=== PATIENT | female | born 1975 | race Caucasian/White ===

== ENCOUNTER 2017-07-16 13:35 | Emergency (ER) | payer MEDICAID, MEDICARE, OTHER ==
[~2017-07-16] VITALS: Ht 162.6 cm; Wt 52.8 kg
[~2017-07-16 13:35] MED LIST: ALBU8I INH; CLON0.5T PO; CYAN1000P IM; ECOT81TA2 PO; FERR324T4 PO; GABA300C3 PO; LORTA5 PO; MECL25 PO; MIRT30 PO; ONDAN4 PO; PROT40TA PO
[2017-07-16 13:39] VITALS: BP 132/60; PULSE 92; RESP 16; TEMP 98.9; O2SAT 98
[2017-07-16] MEDS ORDERED: SODIUM CHLOR 0.9% 1000 ML INJ 1,000 ML IV ONE (15:34)
[2017-07-16] MEDS ORDERED: VITA1000 PO (15:34)
[2017-07-16] MEDS ORDERED: FERR325T18 PO (15:34)
[2017-07-16] MEDS ORDERED: MECL12.574 PO (15:34)
[2017-07-16] MEDS ORDERED: HYDR12.57 PO (15:34)
[2017-07-16] MEDS ORDERED: PROT40TA PO (15:34)
[2017-07-16] MEDS ORDERED: ASPI81CH7 CHEW (15:34)
[2017-07-16] MEDS ORDERED: ZOFR4TAB PO (15:34)
[2017-07-16] MEDS ORDERED: ALBUAER3 INH (15:35)
[2017-07-16] MEDS ORDERED: CLON0.5T PO ×2 (15:35→15:48)
[2017-07-16] MEDS ORDERED: MECLIZINE HCL 25 MG TAB PO ONE (15:45)
[2017-07-16] MEDS ORDERED: metroNIDAZOLE 500 MG TAB PO ONE (15:45)
[2017-07-16] MEDS ORDERED: ONDANSETRON HCL 4 MG/2 ML VIAL IVP ONE (15:45)
[2017-07-16] MEDS ORDERED: SODIUM CHLORIDE 0.9% FLUSH 10 ML FLUSH IVF PRN (15:45)
[2017-07-16] MEDS ORDERED: CLINDAMYCIN 150 MG CAP PO ONE (15:45)
[2017-07-16] MEDS ORDERED: ACETAMINOPHEN/HYDROcodone 325 MG/5 MG TAB PO ONE (15:45)
[2017-07-16] MEDS ORDERED: HYDR-3516 PO (15:48)
[2017-07-16] MEDS ORDERED: CLIN150C14 PO (15:48)
[2017-07-16] MEDS ORDERED: METR-1 PO (15:48)
--- NOTE | 2017-07-16 15:49 | PD ---
HPI Chief Complaint: Dizziness Time Seen by Provider: 15:33 Travel History International Travel<30 days: No Contact w/Intl Traveler<30days: No Traveled to known affect area: No History of Present Illness HPI 41-year-old female complains of dentalgia the right lower mouth. Duration is been at least 3 or 4 days. No fever. Pain is worse with palpation. The patient reports chronic vertigo as well, intermittent in nature. She reports meclizine has been marginally helpful. She reports Klonopin typically treats her symptoms effectively. No fever. PFSH Past Medical History Hx Anticoagulant Therapy: Yes (asa 81mg) Arthritis: No Asthma: No Anxiety: Yes Depression: Yes (history of depression and suicidal ideation) Heart Rhythm Problems: No Cancer: No Cardiovascular Problems: Yes (MITRAL VALVE PROLAPSE) Chest Pain: No Congestive Heart Failure: No COPD: Yes Cerebrovascular Accident: Yes (cva) Diabetes: No Diminished Hearing: No Endocrine: No Gastrointestinal Disorders: Yes (DIVERTICULITIS) Genitourinary: No Headaches: Yes Hepatitis: No Hiatal Hernia: No Hypertension: No Immune Disorder: No Implanted Vascular Access Dvce: No Medical other: Yes (VETIGO,NECK AND BACK) Musculoskeletal: No Neurologic: Yes Psychiatric: Yes (self-reported history of a 6-month "breakdown") Reproductive: No Respiratory: No Migraines: Yes Seizures: No Thyroid Disease: No PNEUMOCCOCAL Vaccine (Year): 2 ?: Not Menopausal: No : 5 Para: 3 Miscarriage: 1 Past Surgical History Abdominal Surgery: No Cardiac Surgery: No Ear Surgery: No Endocrine Surgery: No Eye Surgery: Yes (EYE SURGERY AN ) Genitourinary Surgery: No Gynecologic Surgery: Yes (HYSTERECTOMY/) Hysterectomy: Yes Neurologic Surgery: No Oral Surgery: No Tonsillectomy: Yes (CHILDHOOD) Other Surgery: Yes Social History Alcohol Use: Yes (OCCASIONALLY) Tobacco Use: Yes (03/23) Substance Use: No Allergies-Medications (Allergen,Severity, Reaction): Coded Allergies: egg (Unverified Allergy, Severe, 07/16/17) penicillin G (Unverified Allergy, Severe, HIVES, 07/16/17) Reported Meds & Prescriptions Reported Meds & Active Scripts Active Hydrocodone-Acetaminophen 5-325 mg Tab 1 Tab PO Q6H PRN Flagyl (Metronidazole) 500 Mg Tab 500 Mg PO TID 7 Days Clindamycin (Clindamycin HCl) 150 Mg Cap 450 Mg PO Q8HR 10 Days Clonazepam 0.5 Mg Tab 0.5 Mg PO TID Reported Proair Hfa 8.5 GM Inh (Albuterol Sulfate) 90 Mcg/Act Aer 1 Puff INH Q4H PRN 108 mcg/actuation Zofran (Ondansetron HCl) 4 Mg Tab 4 Mg PO Q12HR PRN Protonix (Pantoprazole Sodium) 40 Mg Tab 40 Mg PO DAILY Meclizine (Meclizine HCl) 12.5 Mg Tab 12.5 Mg PO DIRECTED PRN Vitamin D-1000 (Cholecalciferol) 1,000 Unit Tab 1,000 Units PO DAILY Ferrous Sulfate 325 Mg (65 Mg Iron) Tablet 325 Mg PO DAILY Hydrochlorothiazide 12.5 Mg Cap 12.5 Mg PO DAILY Aspirin Children's (Aspirin) 81 Mg Chew 81 Mg CHEW DAILY Review of Systems Except as stated in HPI: all other systems reviewed are Neg General / Constitutional: No: Fever Physical Exam Narrative GENERAL: 41-year-old female well-nourished well-developed mild distress Vital Signs Date Time Temp Pulse Resp B/P (MAP) Pulse Ox O2 Delivery O2 Flow Rate FiO2 07/16/17 15:28 16 97 Room Air 07/16/17 13:39 98.9 92 16 132/60 (84) 98 Room Air SKIN: Warm and dry. HEAD: Atraumatic. Normocephalic. EYES: Pupils equal and round. No scleral icterus. No injection or drainage. ENT: No nasal bleeding or discharge. Mucous membranes pink and moist. Generalized dental decay present with more severe decay of the right anterior and lower teeth. NECK: Trachea midline. No JVD. CARDIOVASCULAR: Regular rate and rhythm. RESPIRATORY: No accessory muscle use. Clear to auscultation. Breath sounds equal bilaterally. GASTROINTESTINAL: Abdomen soft, non-tender, nondistended. Hepatic and splenic margins not palpable. MUSCULOSKELETAL: Extremities without clubbing, cyanosis, or edema. No obvious deformities. NEUROLOGICAL: Awake and alert. No obvious cranial nerve deficits. Motor grossly within normal limits. Five out of 5 muscle strength in the arms and legs. Normal speech. PSYCHIATRIC: Appropriate mood and affect; insight and judgment normal. Data Data Last Documented VS Vital Signs Date Time Temp Pulse Resp B/P (MAP) Pulse Ox O2 Delivery O2 Flow Rate FiO2 07/16/17 15:28 16 97 Room Air 07/16/17 13:39 98.9 92 132/60 (84) Orders Orders Meclizine (Antivert) (07/16/17 15:45) Ondansetron Inj (Zofran Inj) (07/16/17 15:45) Sodium Chloride 0.9% Flush (Ns Flush) (07/16/17 15:45) Sodium Chlor 0.9% 1000 Ml Inj (Ns 1000 M (07/16/17 15:34) Metronidazole (Flagyl) (07/16/17 15:45) Acetamin-Hydrocod 325-5 Mg ([place] 5-325 (07/16/17 15:45) Clindamycin (Cleocin) (07/16/17 15:45) Ed Discharge Order (07/16/17 15:49) MDM Medical Decision Making Medical Screen Exam Complete: Yes Emergency Medical Condition: Yes Medical Record Reviewed: Yes Differential Diagnosis Acute necrotizing ulcerative periodontal disease, carry, abscess Narrative Course Patient has fairly extensive dental infection with infected caries. We will provide clindamycin and Flagyl. We'll give a short course of Klonopin she'll likely conferred significant benefit for vertigo. Ibuprofen for pain control of dentalgia. Follow-up with dentist. Diagnosis Primary Impression: Chronic dental infection Additional Impression: Vertigo Referrals: Dentist Med/Other Pt SpecificInfo: Prescription(s) given Scripts Metronidazole (Flagyl) 500 Mg Tab 500 MG PO TID for Infection for 7 Days, TAB 0 Refills Prov: Jorje Enriquez MD 07/16/17 Clindamycin (Clindamycin) 150 Mg Cap 450 MG PO Q8HR for Infection for 10 Days, CAP 0 Refills Prov: Jorje Enriquez MD 07/16/17 Clonazepam (Clonazepam) 0.5 Mg Tab 0.5 MG PO TID, #15 TAB 0 Refills Prov: Jorje Enriquez MD 07/16/17 Disposition: 01 DISCHARGE HOME Condition: Stable Jorje Enriquez MD Jul 16, 2017 15:49
[2017-07-16 16:20] VITALS: BP 115/53
== END 2017-07-16 16:24 | disposition home or self-care (01) ==
LOC: PHED 13:35
DX: K04.7 Periapical abscess without sinus (principal); R42 Dizziness and giddiness; J44.9 Chronic obstructive pulmonary disease, unspecified; Z87.19 Personal history of other diseases of the digestive system; Z86.73 Personal history of transient ischemic attack (TIA), and cerebral infarction without residual deficits; I34.1 Nonrheumatic mitral (valve) prolapse; F17.200 Nicotine dependence, unspecified, uncomplicated; Z79.82 Long term (current) use of aspirin; Z79.899 Other long term (current) drug therapy
CPT/HCPCS: 99283